=== PATIENT | female | born 1990 | race Asian ===

== ENCOUNTER 2017-09-04 12:13 | Outpatient (CLI) | payer BC, OTHER ==
[~2017-09-04] VITALS: Ht 149.9 cm; Wt 90.7 kg
[~2017-09-04 12:13] MED LIST: BECL8.7A INH; LEVA15HF6 INH; PREN1TAB62 PO
[2017-09-04 12:39] VITALS: BP 123/64; PULSE 113; RESP 18; Ht 149.9 cm; Wt 90.7 kg
[2017-09-04 13:13] LABS: ADD UMIC YES; UR ASCORBIC ACID 20 mg/dL (NEGATIVE); UR BACTERIA FEW /HPF (NONE SEEN); UR BILIRUBIN (Dip) NEGATIVE (NEGATIVE); UR BLOOD (Dip) NEGATIVE (NEGATIVE); UR CLARITY CLOUDY (CLEAR); UR COLOR AMBER (YELLOW); UR GLUCOSE (Dip) 1+ mg/dL (NEGATIVE); UR KETONES (Dip) TRACE mg/dL (NEGATIVE); UR LEUKOCYTE ESTERASE (Dip) 1+ Leu/ul (NEGATIVE); UR MUCUS MANY /HPF (NONE SEEN); UR NITRITE (Dip) NEGATIVE (NEGATIVE); UR RBC 8 /HPF (0-5); UR SPECIFIC GRAVITY (Dip) 1.025 (1.003-1.030); UR SQUAMOUS EPITHELIAL CELL MANY /HPF (FEW); UR TOTAL PROTEIN (Dip) 1+ mg/dl (NEGATIVE); UR UROBILINOGEN (Dip) 1+ mg/dL (NEGATIVE)
--- NOTE | 2017-09-04 13:43 | RADRPT ---
PROCEDURE: Obstetrical ultrasound for biophysical profile CLINICAL INDICATION: Biophysical profile. . TECHNIQUE: Obstetrical ultrasound of the uterus for biophysical profile. Transabdominal and transvaginal views are obtained. COMPARISON: 07/01/2017 FINDINGS: Single intrauterine gestation. Presentation: Cephalic. Placenta: Anterior. No evidence of placental abruption. No evidence of placenta previa. Cervix is closed as visualized transvaginally measuring 3.6 cm. breathing movement = 2/2 tone = 2/2 motion = 2/2 ROBER = 2/2 ROBER = 17.3 cm heart rate: 146 beats per minute IMPRESSION: Single intrauterine gestation. Biophysical profile 06/28 RPTAT: AADD .Junior Ji MD, MD Date Time Electronically viewed and signed by .Junior Ji MD, on 09/04/2017 13:42 .B/
--- NOTE | 2017-09-04 14:08 | TRIAGE ---
OB Triage Datetime Report Generated by CPN: 09/04/2017 14:08 Datetime: 09/04/2017 14:00 Stage of : OB Triage Maternal Assessment Level of Consciousness: Fully Conscious Labor Evaluation Frequency: NONE Monitor Mode: External Resting Tone [place]: Relaxed Heart Rate FHR Baseline Rate: 145 Monitor Mode: External US Variability: Moderate 6-25 bpm Accelerations: 15X15 Decelerations: AGA Pain Assessment Pain Scale: 0 Pain Goal: 3 Vaginal Exam Membrane Status: Intact Vaginal Bleeding: None Datetime: 09/04/2017 13:13 Stage of : OB Triage Maternal Assessment Level of Consciousness: Fully Conscious Labor Evaluation Frequency: NONE Monitor Mode: External Resting Tone [place]: Relaxed Heart Rate FHR Baseline Rate: 145 Monitor Mode: External US Variability: Moderate 6-25 bpm Accelerations: 15X15 Decelerations: AGA Category: AGA Pain Assessment Pain Scale: 0 Pain Goal: 3 Vaginal Exam Membrane Status: Intact Vaginal Bleeding: None Datetime: 09/04/2017 12:35 Assessment Type: Triage Maternal Assessment Level of Consciousness: Fully Conscious DTR's/Clonus: DTRs 2+; No Clonus Headache: Denies Blurred Vision: No Respiratory Effort: Unlabored; Regular Rhythm; Equal Expansion Breath Sounds, Left: Clear and Equal Breath Sounds, Right: Clear and Equal Nausea/Vomiting: Denies RUQ Epigastric Pain: Denies Lower Extremities Edema: None Degree: None Upper Extremities Edema: None Degree: None Facial Edema: None Fall Risk Assessment History of Falling: (0) No Secondary Diagnosis: (0) No Ambulatory Aid: (0) Bedrest/Nurse Assist IV Therapy: (0) No Gait: (0) Normal/Bedrest/Immobile Mental Status: (0) Oriented to Own Ability Fall Score: 0 Fall Risk Score Definition: No Risk: No action required Datetime: 09/04/2017 12:34 EGA: 30.4 Datetime: 09/04/2017 12:27 Time of Arrival: 09/04/2017 12:08 Arrived By: Wheelchair Arrived From: Home Chief Complaint: PT HERE C/O LOWER ABDOMINAL AND PERINEAL PRESSURE WITH AMBULATION Movement: Present Contractions: Denies/Absent Rupture of Membranes: Denies Vaginal Bleeding: None Vaginal Discharge: Denies Recent Sexual Intercouse: Denies Abdominal Trauma: Not Applicable Patient Complaints: None; Other Additional Patient Complaints: PAIN IN LOWER ABDOMEN AND PERINEUM Time Provider Notified: 09/04/2017 12:45 (Annotations: Data stored by CPN on behalf of user) Provider Notified: ZOLTAN Initial Plan: CVL/BPP/UA Datetime: 09/04/2017 12:25 Monitor Mode: External Monitor Mode: External US
--- NOTE | 2017-09-04 14:17 | PN ---
Triage Information Date/Time Reason for visit: Abd/pelvic pain Weeks of Gestation 30w4d /Para Diabetes: none Hypertention: none Additional information have 4yr s old child argue with hosband not physical Objective Vital Signs Date Time Temp Pulse Resp B/P Pulse Ox O2 Delivery O2 Flow Rate FiO2 09/04/17 12:39 98.7 113 18 123/64 95 Room Air Heart Rate: 140's Results/Medications Results 24 hrs Laboratory Tests Test 09/04/17 12:15 Urine Color [place] Urine Clarity CLOUDY A Urine pH 5.0 Urine Specific [place] 1.025 Urine Ketones TRACE A Urine Nitrite NEGATIVE Urine Bilirubin NEGATIVE Urine Urobilinogen 1+ H Urine Leukocyte Esterase 1+ H Urine Microscopic RBC 8 H Urine Microscopic WBC 10 H Urine Squamous Epithelial Cells MANY A Urine Bacteria FEW A Urine Mucus MANY A Urine Hemoglobin NEGATIVE Urine Glucose 1+ H Urine Total Protein 1+ H Imaging Results BPP 8/8 ROBER 17.3 CVL 3.6 Disposition: Discharge Assessment/Plan IUP 30w4d 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
== END 2017-09-04 14:18 | disposition home or self-care (01) ==
LOC: OBT 12:13 → L-D 12:15 → OBT 14:18
PROVIDERS: ATTEND Specialist
DX: O26.893 Other specified pregnancy related conditions, third trimester (principal); Z3A.30 30 weeks gestation of pregnancy; R10.2 Pelvic and perineal pain
CPT/HCPCS: 76817; 76818; 81001; 87086; Z7500; G0463